=== PATIENT | female | born 1985 | race Caucasian/White ===

== ENCOUNTER 2023-03-09 14:13 | Emergency (ER) | payer SELFPAY ==
[~2023-03-09] VITALS: Ht 160 cm; Wt 103.9 kg
[2023-03-09 14:33] VITALS: BP 127/79; PULSE 91; RESP 18; TEMP 98.3; O2SAT 98
[2023-03-09] MEDS ORDERED: IBUP-2213 PO (18:29)
[2023-03-09 18:58] VITALS: BP 122/70; PULSE 88; RESP 18; TEMP 98.3; O2SAT 98
== END 2023-03-09 18:59 | disposition home or self-care (01) ==
LOC: MED 14:13
DX: G89.29 Other chronic pain (principal); M25.561 Pain in right knee; M25.562 Pain in left knee; Z79.1 Long term (current) use of non-steroidal anti-inflammatories (NSAID); Z88.5 Allergy status to narcotic agent
CPT/HCPCS: 73562; 99283